=== PATIENT | female | born 1965 | race Asian ===

== ENCOUNTER 2018-06-08 15:33 | Emergency (ER) | payer MEDICAID ==
[~2018-06-08] VITALS: Ht 170.2 cm; Wt 50.8 kg
[2018-06-08 15:39] VITALS: BP 110/73
--- NOTE | 2018-06-08 15:45 | NUR ---
ED Nurse Note: Patient walked in to ED c/o right earlobe infection swelling and redness noted. patient reports pus oozing from the right earlobe. patient denies pain. alert awake x4 ambulatory.
[2018-06-08] MEDS ORDERED: ANTI-ITCH28 G1 TP (15:53)
[2018-06-08] MEDS ORDERED: CLEOCIN150 MG ORAL (15:53)
[2018-06-08] MEDS ORDERED: BACITRACIN-P28.35 GM TP (15:53)
--- NOTE | 2018-06-08 15:55 | Emergency Room Report ---
History of Present Illness General Chief Complaint: Skin Rash/Abscess Source: Patient Present Illness HPI 52-year-old female patient presents the ER complaining of right earlobe infection. Reports her ear has been swollen for the past with a week and a half. Reports that she recently put her earring in approximately 2 weeks ago and thinks that she "re-pierced it". Reports symptoms began shortly after that. Reports drainage from ear. Reports pruritus, denies pain. Denies fever , chest pain, shortness of breath. Reports up-to-date on tetanus vaccinations. Reports has been applying topical antibiotic. Allergies: Coded Allergies: CEPHALEXIN (Verified Allergy, Unknown, 06/08/18) Patient History Past Medical History: see triage record Last Menstrual Period: menopause Reviewed Nursing Documentation: PMH: Agreed; PSxH: Agreed Nursing Documentation-PMH Past Medical History: No Stated History Review of Systems All Other Systems: negative except mentioned in HPI Physical Exam Vital Signs Date Time Temp Pulse Resp B/P (MAP) Pulse Ox O2 Delivery O2 Flow Rate FiO2 06/08/18 15:36 98.1 69 18 110/73 98 Room Air Sp02 EP Interpretation: reviewed, normal General Appearance: well appearing, no apparent distress, alert, GCS 15, non- toxic Head: normocephalic, atraumatic Eyes: bilateral eye normal inspection, bilateral eye PERRL ENT: hearing grossly normal, normal pharynx, no angioedema, normal voice, uvula midline, moist mucus membranes Neck: full range of motion, no bony tend Respiratory: lungs clear, normal breath sounds, no rhonchi, no respiratory distress, no accessory muscle use, no wheezing, speaking full sentences Cardiovascular #1: regular rate, rhythm, no edema Musculoskeletal: back normal, digits/nails normal, gait/station normal, normal range of motion, non-tender Psychiatric: mood/affect normal Skin: other - Right earlobe: Erythema and mild edema, no palpable mass, no drainage noted; no mastoid swelling or erythema Medical Decision Making PA Attestation Dr. Horowitz is my supervising Physician whom patient management has been discussed with. Diagnostic Impression: Primary Impression: Cellulitis ER Course Pt. presents to the ED c/o right earlobe swelling. Ddx considered but are not limited to cellulitis, abscess, localized inflammation, retained foreign body. Vital signs: are WNL, pt. is afebrile ER COURSE: Signs and symptoms consistent with likely early cellulitis, will provide patient with antibiotic coverage. No palpable mass, history of drainage, does not require I&D at this time. Follow-up with PCP. ER precautions given. Do not put earring back into the earlobe. DISCHARGE: At this time pt is stable for d/c to home. Patient is resting comfortably, in no acute distress, nontoxic appearing, talking without difficulty. Patient to take medications as instructed Will provide with patient care instructions and any necessary prescriptions. Care plan and follow-up instructions provided. Patient instructed to follow-up with primary care provider in 3 - 5 days. Patient questions asked and answered. Patient reports understanding and agreement to treatment plan. ER precautions given. Patient instructed to return to ER immediately for any new or worsening of symptoms including but not limited to increasing SOB, persistent fever, chest pain, intractable vomiting. - Please note that this Emergency Department Report was dictated using [employer] bartender technology software, occasionally this can lead to erroneous entry secondary to interpretation by the dictation equipment. Last Vital Signs Date Time Temp Pulse Resp B/P (MAP) Pulse Ox O2 Delivery O2 Flow Rate FiO2 06/08/18 15:36 98.1 69 18 110/73 98 Room Air Status: improved Disposition: HOME, SELF-CARE Condition: Stable Scripts Hydrocortisone 2% Cream (ANTI-ITCH 2% CREAM) Y Cr 28 GM TP BID, #28 GM Prov: Roshan Minor 06/08/18 Bacitracin/Polymyxin B Sulfate (BACITRACIN-POLYMYXIN OINTMENT) 28.35 Gm Oint...g. 1 APPLIC TP BID, #28 GM Prov: Roshan Minor 06/08/18 Clindamycin HCl (Clindamycin HCl) 300 Mg Capsule 300 MG ORAL Q6H, #28 CAP Prov: Roshan Minor 06/08/18 Patient Instructions: Cellulitis, [id number] Additional Instructions: Followup with primary care provider in 3 -5 days. Request referral to dermatology as needed. Follow-up with PCP or return to ER in 2-3 days for wound check. Do not scratch or itch. Apply cool compresses to affected area. Do not put earring back in. Take medications as directed. Do not apply topical steroid medication to face or skin creases. SE Benadryl drowsiness, do not take prior to drinking, driving, operating heavy machinery. Take Claritin during the day and Benadryl at night for itching symptoms. Patient questions asked and answered. ER precautions given, patient instructed to return to ER immediately for any new or worsening of symptoms. [facility] Roshan Minor Jun 08, 2018 15:55
[2018-06-08] MEDS ORDERED: Bacitracin Oint UD TOPIC ONE ×2 (16:00)
[2018-06-08] MEDS: HydrOXYzine tab 25mg tab ORAL ONE ×2 (16:01→16:10)
--- NOTE | 2018-06-08 16:03 | NUR ---
ED Nurse Note: patient refused to take atarax. patient stated that itchiness is bearable and she does not need medication for it. bacitracin applied on the ear.
--- NOTE | 2018-06-08 16:09 | NUR ---
ER DISCHARGE NOTE: Patient is cleared to be discharged per ERMD, pt is aox4, on room air, with stable vital signs. pt was given dc and prescription instructions, pt was able to verbalize understanding, pt id band removed without complications. pt is able to ambulate with steady gait. pt took all belongings.
[2018-06-08 16:11] VITALS: BP 110/73
== END 2018-06-08 16:08 | disposition home or self-care (01) ==
LOC: EMR 15:54
DX: H60.11 Cellulitis of right external ear (principal); Z88.1 Allergy status to other antibiotic agents
CPT/HCPCS: 99282

== ENCOUNTER 2018-06-15 16:49 | Emergency (ER) | payer MEDICAID ==
[~2018-06-15] VITALS: Ht 170.2 cm; Wt 50.8 kg
[~2018-06-15 16:49] MED LIST: ANTI-ITCH28 G1 TP; BACITRACIN-P28.35 GM TP; CLEOCIN150 MG ORAL
[2018-06-15 17:03] VITALS: BP 117/81
--- NOTE | 2018-06-15 17:10 | NUR ---
ED Nurse Note: PATIENT WALKED INTO ED FROM HOME PATIENT WANTED TO GET CHECKED UP FOR THE RIGHT EARLOB EDEMA. PATIENT STATES THAT IT HAS BEEN GETTING BETTER, SWELLING IS SUBSIDING, ITCHINESS IS CONTROLLED. PATIENT STATED SHE FINISHED THE ANTIBIOTIC PRESCRIBED, SHE IS WORRIED IF THE RIGHT EAR INFECTION
[2018-06-15] MEDS ORDERED: Clindamycin 150mg cap ORAL ONE (18:30)
--- NOTE | 2018-06-15 18:41 | Emergency Room Report ---
History of Present Illness General Chief Complaint: Wound Recheck/Suture Removal Source: Patient Present Illness HPI 52-year-old female presents to the emergency department requesting an extension of her antibiotics. Patient was previously seen and diagnosed with cellulitis of the right ear and has been taking clindamycin x 7 days. Patient reports that her symptoms have significantly improved however she still has some residual swelling and erythema and is concerned that she has not fully cleared the infection. Pt. reports infection began after she re-pierced her ear. Patient denies trauma or fall she denies fevers or chills she denies one tender lymph nodes. She denies pain at this time but states that palpation will cause tenderness. no relieving factors. Denies CP, SOB, swelling of the lips or tongue , or lesions elsewhere on the body. Allergies: Coded Allergies: CEPHALEXIN (Verified Allergy, Unknown, 06/08/18) Patient History Past Medical History: see triage record Past Surgical History: none Pertinent Family History: none Last Menstrual Period: na Now: No Reviewed Nursing Documentation: PMH: Agreed; PSxH: Agreed Nursing Documentation-PMH Past Medical History: No Stated History Review of Systems All Other Systems: negative except mentioned in HPI Physical Exam Vital Signs Date Time Temp Pulse Resp B/P (MAP) Pulse Ox O2 Delivery O2 Flow Rate FiO2 06/15/18 17:03 97.7 63 18 117/81 98 Room Air Sp02 EP Interpretation: reviewed, normal General Appearance: no apparent distress, alert, GCS 15, non-toxic Head: normocephalic, atraumatic Eyes: bilateral eye normal inspection, bilateral eye PERRL ENT: hearing grossly normal, normal voice, TMs + canals normal, other - right ear lobe is mildly swollen and erythema. no fluctuance no lad Neck: full range of motion Respiratory: chest non-tender, lungs clear, normal breath sounds, speaking full sentences Cardiovascular #1: regular rate, rhythm, no edema Gastrointestinal: normal bowel sounds, non tender, soft Rectal: deferred Genitourinary: normal inspection Musculoskeletal: back normal, gait/station normal, normal range of motion, non- tender Neurologic: alert, oriented x3, responsive, motor strength/tone normal, sensory intact, speech normal, grossly normal Psychiatric: judgement/insight normal Skin: normal color, no rash, warm/dry, well hydrated Lymphatic: no adenopathy Medical Decision Making PA Attestation Dr. Broderick is my supervising Physician whom patient management has been discussed with. Diagnostic Impression: Primary Impression: Cellulitis Qualified Codes: L03.211 - Cellulitis of face ER Course 52-year-old female presents to the emergency department requesting an extension of her antibiotics. Patient was previously seen and diagnosed with cellulitis of the right ear and has been taking clindamycin x 7 days. Patient reports that her symptoms have significantly improved however she still has some residual swelling and erythema and is concerned that she has not fully cleared the infection. Pt. reports infection began after she re-pierced her ear. Patient denies trauma or fall she denies fevers or chills she denies one tender lymph nodes. She denies pain at this time but states that palpation will cause tenderness. no relieving factors. Denies CP, SOB, swelling of the lips or tongue , or lesions elsewhere on the body. Ddx considered but are not limited to cellulitis, otitis externa, LAD, allergic reaction, insect bite just to name a few. Vital signs: are WNL, pt. is afebrile H&PE are most consistent with mild residual cellulitis of the right ear lobe. ORDERS: none required at this time, the diagnosis is clinical ED INTERVENTIONS: None required at this time. -I do not identify an emergent condition at this time. With current presentation , pt. is stable for close outpatient follow up and conservative treatment. D/ w pt. to return promptly to ED with worsening or new symptoms.- Pt. verbalizes' understanding and agreement with proposed treatment plan. DISCHARGE: At this time pt. is stable for d/c to home. Will provide printed patient care instructions, and any necessary prescriptions. Care plan and follow up instructions have been discussed with the patient prior to discharge. Last Vital Signs Date Time Temp Pulse Resp B/P (MAP) Pulse Ox O2 Delivery O2 Flow Rate FiO2 06/15/18 17:03 97.7 67 18 117/81 98 Room Air Status: improved Disposition: HOME, SELF-CARE Condition: Stable Scripts Clindamycin Hcl (CLINDAMYCIN HCL) 300 Mg Capsule 300 MG ORAL FOUR TIMES A DAY for 3 Days, #12 CAP Prov: Amaya Mejia 06/15/18 Referrals: NON PHYSICIAN (PCP) Patient Instructions: Cellulitis, [id number] Additional Instructions: Take medications as directed. Follow up with a Primary Care Provider in 3-5 days, even if your symptoms have resolved. --Please review list of primary care clinics, if you do not already have a primary care provider Return sooner to ED if new symptoms occur, or current symptoms become worse. - Please note that this Emergency Department Report was dictated using [employer] representative printing paper technology software, occasionally this can lead to erroneous entry secondary to interpretation by the dictation equipment. Amaya Mejia Jun 15, 2018 18:41
[2018-06-15] MEDS ORDERED: CLINDAMYCIN HC300 MG ORAL (18:42)
[2018-06-15 18:46] VITALS: BP 117/81
--- NOTE | 2018-06-15 19:02 | NUR ---
ER DISCHARGE NOTE: Patient is cleared to be discharged per FREDDY FRANCOIS, pt is aox4, on room air, with stable vital signs. pt was given dc and prescription instructions, pt was able to verbalize understanding, pt id band removed without complications. pt is able to ambulate with steady gait. pt took all belongings.
== END 2018-06-15 18:58 | disposition home or self-care (01) ==
LOC: EMR 17:28
DX: L03.211 Cellulitis of face (principal); Z88.1 Allergy status to other antibiotic agents
CPT/HCPCS: 99282